=== PATIENT | male | born 1955 ===

== ENCOUNTER 2017-10-09 14:45 | Emergency (ER) | payer OTHER ==
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
[2017-10-09 16:11] VITALS: BP 142/95
== END 2017-10-09 16:24 | disposition home or self-care (01) ==
LOC: ER 14:48
DX: M62.830 Muscle spasm of back (principal); S70.01XA Contusion of right hip, initial encounter; V87.7XXA Person injured in collision between other specified motor vehicles (traffic), initial encounter
CPT/HCPCS: 72100; 73564; 99283